=== PATIENT | male | born 1950 | race Caucasian/White ===

== ENCOUNTER 2025-05-04 13:48 | Emergency (ER) | payer MEDICARE, SELFPAY ==
[2025-05-04] VITALS (15 sets, daily range): BP systolic 97–145; BP diastolic 58–120; PULSE 90–123; RESP 14–23; TEMP 36.6–39.3; O2SAT 91–100; BMI 10.2
--- NOTE | 2025-05-04 14:20 | EKG12_ITS ---
Test Reason : GENERAL Blood Pressure : */* mmHG Vent. Rate : 95 BPM Atrial Rate : 95 BPM P-R Int : 134 ms QRS Dur : 88 ms QT Int : 346 ms P-R-T Axes : -3 3 41 degrees QTcB Int : 434 ms Normal sinus rhythm Normal ECG Confirmed by Faustino Victoria ([id number]), metropolitan editor MIRANDA GUSMAN ([id number]) on 05/06/2025 5:48:00 AM Referred By: Confirmed By: Faustino Victoria
--- NOTE | 2025-05-04 14:31 | EX.ED.DYSGE1 ---
HPI History of Present Illness Chief Complaint: Fever Narrative Narrative: History and physical as mildly limited secondary to patient condition and age. Patient sent from [facility] with concern for sepsis. He states he has been feeling well over the last day. When I asked him if he has had a fever, he stated that he did not think so. He denies any cough or difficulty breathing, no dysuria. He was sent because he had elevated temperature of 99.5 and may have been a little more confused. [facility] Medical History BPH (benign prostatic hyperplasia) GERD (gastroesophageal reflux disease) Venous insufficiency CHF (congestive heart failure) Major depressive disorder Alcohol abuse Malignant neoplasm of prostate Pulmonary embolism HTN (hypertension) Hydronephrosis Cystitis Dementia Allergy/AdvReac Type Severity Reaction Status Date / Time No Known Allergies Allergy Verified 05/04/25 13:58 Social History Smoking Status: Current every day smoker tobacco type: cigarettes ROS ROS ED ROS Narrative Review of systems positive for generalized weakness, reported elevated temperature. Denies cough or shortness of breath, no chest pain. No difficulty urinating or urinary frequency. Review of Systems ROS Unobtainable: due to mental status EXAM Physical Exam Narrative Exam Narrative: Afebrile, temperature 99.5 ?F. Vital signs noted. Cardiovascular semination reveals mild tachycardia. Lungs are clear to auscultation bilaterally anteriorly. Abdomen is soft and nontender without guarding or rebound. Positive bowel sounds. No noted pedal edema. Moves all extremities. Awake, alert, oriented to person and place but not time. Const Vital Signs: 05/04/25 13:51 05/04/25 13:56 05/04/25 14:05 Temperature 99.5 F H 99.5 F H Temperature Source Oral Temporal Pulse Rate 100 104 H Respiratory Rate 17 20 H Respiratory Effort Normal Non-Labored Blood Pressure 105/70 105/70 Blood Pressure Mean 81 81 Pulse Ox 91 93 Oxygen Delivery Method Room Air Room Air 05/04/25 14:25 05/04/25 14:54 05/04/25 15:00 Temperature 101.2 F H 101.3 F H Temperature Source Core Core Pulse Rate 96 92 Respiratory Rate 23 H 19 H Respiratory Effort Blood Pressure 114/65 105/58 L Blood Pressure Mean 81 73 Pulse Ox 93 94 Oxygen Delivery Method Room Air Room Air Room Air 05/04/25 16:00 Temperature 100.9 F H Temperature Source Oral Pulse Rate 91 Respiratory Rate 21 H Respiratory Effort Blood Pressure 97/61 Blood Pressure Mean 73 Pulse Ox 100 Oxygen Delivery Method Room Air MDM MDM MDM Narrative Medical decision making narrative: Differential diagnosis includes but not limited to sepsis versus dehydration versus other electrolyte imbalance. He may have more of a viral syndrome. Sepsis workup was pursued. EKG was obtained interpreted by myself independently as normal sinus rhythm at 95 bpm without ectopy or acute ST changes. No STEMI. Reviewed his laboratory work and he has normal white count 9.2 with hemoglobin 14.0, hematocrit 40.5, platelet count 226. Coagulation studies are negative except APTT slightly elevated at 37.5. CMP shows glucose of 114 with a normal BUN and creatinine, AST and ALT and alk phos are normal. Ammonia was obtained to look for hepatic encephalopathy as he has a cholecystomy tube that is draining bilious material. Ammonia level is normal at 18.1. Urinalysis does show RBCs of 10-25 with 0-5 WBCs and 1+ bacteria. This will be sent for culture. In review of the chest x-ray, there is hazy opacity in the right lower lobe on my independent interpretation. I reviewed the radiology report which confirms my independent interpretation. Additionally, CT of the abdomen pelvis was obtained and comments on right pleural effusion and opacity of the lung concerning for pneumonia as well. There is the cholecystomy tube in place in the gallbladder but there is no evidence of pericholecystic fluid or infection. Patient did spike a fever as high as 101.3 so he was administered Tylenol 650 mg orally. Although his lactic acid is currently normal, concern is that he may become septic. He was started on antibiotics in the form of Rocephin 2 g and azithromycin for pneumonia. I discussed patient with the hospitalist for admission. Patient in stable condition History & Record Review Discussion w/independent historian: Patient Lab Data Attestation: I reviewed the patient's lab results. Labs: Laboratory Results - last 24 hr 05/04/25 05/04/25 05/04/25 14:33 14:47 14:48 WBC 9.2 RBC 4.22 L Hgb 14.0 Hct 40.5 MCV 96.0 H MCH 33.2 H MCHC 34.6 RDW Std Deviation 50.6 H RDW Coeff of Mehdi 14.3 Plt Count 226 MPV 11.0 Immature Gran % (Auto) 0.300 Neut % (Auto) 70.3 H Lymph % (Auto) 8.1 L Owsley % (Auto) 20.0 H Eos % (Auto) 1.0 Baso % (Auto) 0.3 Absolute Neuts (auto) 6.4 Absolute Lymphs (auto) 0.74 L Nucleated RBC % 0 PT 20.3 H INR 1.7 APTT 37.5 H Sodium 138 Potassium 4.1 Chloride 102 Carbon Dioxide 25.5 Anion Gap 11 BUN 18 Creatinine 0.91 Est GFR (MDRD) Non-Af 89 BUN/Creatinine Ratio 19.7 Glucose 114 H Lactic Acid 1.8 Calcium 8.6 Total Bilirubin 1.15 AST 18 ALT 8 Alkaline Phosphatase 71 Ammonia 18.1 Total Protein 6.6 Albumin 2.9 L Globulin 3.7 Albumin/Globulin Ratio 0.8 L Urine Color Yellow Urine Clarity Sl. Cloudy Urine pH 5.0 Ur Specific [place] 1.020 Urine Protein 30 H Urine Glucose (UA) Normal Urine Ketones Negative Urine Occult Blood 250 H Urine Nitrite Negative Urine Bilirubin 1 H Urine Urobilinogen 4 H Ur Leukocyte Esterase 25 H Urine RBC 10-25 SEEN Urine WBC 0-5 SEEN Ur Squamous Epith Cells 0 SEEN Calcium Oxalate Crystal RARE Amorphous Sediment 1+ Urine Bacteria 1+ Urine Mucus 0 SEEN Radiography Chest X-Ray - ED: 1 View, Read by ED Physician, Read by Radiologist and Right Infiltrate Diagnostic Testing: Clinical Impression(s) from Imaging Studies Abdomen/Pelvis CT 05/04/25 14:37 IMPRESSION: Right pleural effusion with airspace opacity may represent atelectasis with pneumonia can not be excluded. Cholecystomy tube is in place. The gallbladder is decompressed which limits in the evaluation but likely shows mild wall thickening. No gallstones seen within the limitation of the study. No pericholecystic fluid or gas. No biliary dilation. Large prostate. Reading Location: [facility] Chest X-Ray 05/04/25 15:10 IMPRESSION: Patchy opacity within right lower lung, concerning for underlying infectious/inflammatory process. Reading Location: [id number] Management Discussion w/another healthcare provider: Hospitalist (Dr. Mcleod) Discharge Plan Dx/Rx/DC Orders Clinical Impression: Fever, Pneumonia, Mental status, decreased, Generalized weakness Disposition Disposition: Acute Care Hospital [facility]
--- NOTE | 2025-05-04 14:37 | CT_ITS ---
PROCEDURE: ABDOMEN/PELVIS W IV CONT ONLY 05/04/2025 REASON FOR EXAM: FEVER TECHNIQUE: Procedure Code: [id number] Modality: CT Procedure: ABDOMEN/PELVIS W IV CONT ONLY Coronal and Sagittal reconstruction series were provided. CONTRAST: Isovue 370 VOLUME: 75 mL One or more dose reduction techniques were used (e.g., Automated exposure control, adjustment of the mA and/or kV according to patient size, use of iterative reconstruction technique. RADIATION DOSE SUMMARY: CTDlvol: 8.59 mGy DLP: 507.18 mGycm COMPARISON: None. FINDINGS: Lung bases: Right pleural effusion with airspace opacity may represent atelectasis with pneumonia can not be excluded. Liver: Unremarkable. Gallbladder: The cholecystomy tube is in place. The gallbladder is decompressed which limits in the evaluation but likely shows mild wall thickening. No pericholecystic fluid or gas. No biliary dilation. Spleen: Calcified granulomas in the spleen. Pancreas: Unremarkable. Adrenals: Unremarkable. Kidneys: A 2 cm cyst at the upper pole of the left kidney. A 1.4 cm stone at the upper pole of the left kidney. A punctate stone in the right renal pelvis. A 1.2 cm stone in the right renal pelvis. Mild right hydronephrosis. The bladder is decompressed by Sinclair catheter. Bladder: Decompressed by Sinclair catheter but otherwise unremarkable. Reproductive Organs: Unremarkable. Bowel: No bowel wall thickening. No bowel obstruction. Appendix: Unremarkable. Lymph nodes: No lymphadenopathy. Vasculature: Atherosclerotic calcifications. No aneurysm. Peritoneum / Retroperitoneum: No free air or free fluid. Bones: No acute bony abnormality. A Schmorl node at the upper endplate of L2. Status post total left hip replacement. CT/Abdomen/Pelvis W IV Cont ONLY IMPRESSION: Right pleural effusion with airspace opacity may represent atelectasis with pne umonia can not be excluded. Cholecystomy tube is in place. The gallbladder is decompressed which limits in the evaluation but likely shows mild wall thickening. No gallstones seen within the limitation of the study. No pericho lecystic fluid or gas. No biliary dilation. Large prostate. Reading Location: [facility]
[2025-05-04 14:53] LABS: Hematocrit 40.5 % (40-54); Hemoglobin 14.0 g/dL (13.0-16.5); Immature Granulocytes Count 0.030 X10^3/uL (0.0-0.0); Mean Corp Hgb Conc 34.6 g/dL (32-36); Mean Corpuscular Volume 96.0 fL (80-94); Mean Platelet Vol. 11.0 fl (6.2-12.0); NRBC Flagged by Analyzer 0 % (0-5); POSITIVE DIFFERENTIAL YES; Platelet Count 226 K/mm3 (150-450); RBC Distribution Width CV 14.3 % (11.6-14.6); RBC Distribution Width SD 50.6 fl (35.1-43.9); Red Blood Count 4.22 M/mm3 (4.6-6.2); White Blood Count 9.2 K/mm3 (4.4-11.0)
[2025-05-04 14:57] LABS: Mucous, Urine 0 SEEN /hpf (<or=2+); Squamous Epithelial Cells - UA 0 SEEN /hpf (0-5)
[2025-05-04 15:02] LABS: Partial Thromboplast Time 37.5 Seconds (24.1-36.2); Prothrombin Time (Protime)PT. 20.3 SECONDS (11.7-14.9)
[2025-05-04] MEDS: 0.9% Normal Saline (1000mL) 1,000 ML 999 ML IV (15:05)
--- NOTE | 2025-05-04 15:10 | RAD_ITS ---
PROCEDURE: CHEST 1 VIEW (PORTABLE) 05/04/2025 REASON FOR EXAM: FEVER TECHNIQUE: Frontal view of the chest. COMPARISON: None FINDINGS: Hardware: Monitoring electrodes overlying chest wall. Heart: Heart size is mildly enlarged. Lungs: Patchy opacity within right lower lung. Bibasilar atelectasis. Bones: Degenerative changes are identified within the thoracic spine. Other: RAD/Chest 1 View (Portable) IMPRESSION: Patchy opacity within right lower lung, concerning for underlying infectious/in flammatory process. Reading Location: [id number]
[2025-05-04 15:13] LABS: Color, Urine Yellow (Yellow); Glucose, Dipstick Normal (Normal); Ketone-Dipstick Negative (Negative); Leukocyte Esterase-Dipstick 25 /ul (Negative); Nitrite-Dipstick Negative (Negative); Occult Blood-Urine 250 /ul (Negative); Protein-Dipstick 30 mg/dl (Negative); Specific Gravity, Urine 1.020 (1.002-1.030); Urine Bilirubin Dipstick 1 mg/dL (Negative)
[2025-05-04 15:13] LABS: Differential Indicated SCAN CRITERIA MET
[2025-05-04 15:17] LABS: Ammonia 18.1 umol/L (16-60)
[2025-05-04 15:18] LABS: AST(SGOT) 18 U/L (<=37); Alanine Aminotransfer ALT/SGPT 8 U/L (<=46); Albumin, Serum 2.9 g/dL (3.4-4.8); Alkaline Phosphatase 71 U/L (40-129); Anion Gap 11 (5-15); BUN 18 mg/dL (4-19); BUN/Creat Ratio 19.7 RATIO (10-20); Calcium,Total 8.6 mg/dL (7.6-11.0); Carbon Dioxide 25.5 mmol/L (21.0-32.0); Chloride 102 mmol/L (98-108); Globulin 3.7 g/dL (2.2-4.2); Glucose 114 mg/dL (70-99); Potassium 4.1 mmol/L (3.3-5.1)
[2025-05-04 15:20] LABS: Calcium Oxalate Crystals Ur RARE /hpf (<or=2+); Red Blood Cells-Urine 10-25 SEEN /hpf (0-5)
[2025-05-04] MEDS: Ceftriaxone 2 GM in 0.9% Normal Saline (50mL MB+) 50 ML IV (16:37)
[2025-05-04] MEDS: Azithromycin 500 MG in 0.9% Normal Saline (250mL Bag) 250 ML 255 MG IV (16:42)
--- NOTE | 2025-05-04 21:10 | PCA ---
[facility] CALLED, CHART FAXED.
--- NOTE | 2025-05-04 21:25 | PCA ---
PT ACCEPTED AT [facility] BY DR. JAIN [id number] [phone] 3S [id number] BED Richy HEARN RN ASKED TO BE CALLED WITH TRANSPORT TIME. LOCAL TRANSPORT CALLED AND GIVEN AN ETA OF 5 HRS ([id number]). DID REQUEST THEY TRY AND OUTSOURCE AND AWAITING CALL BACK.
[2025-05-04] MEDS: Meropenem 2 GM in 0.9% Normal Saline (100mL Bag) 100 ML IV (21:32)
[2025-05-05] VITALS: BP 109/65; PULSE 95; RESP 94; TEMP 38.3; O2SAT 97
[2025-05-05 01:00] VITALS: BP 89/56; PULSE 86; RESP 18; RESP 19; TEMP 37.9; O2SAT 96
--- NOTE | 2025-05-05 05:40 | ED.RN ---
see down time chartng from 1 to 5am.
== END 2025-05-05 05:41 | disposition short-term general hospital (02) ==
PROVIDERS: Emergency Provider Emergency Medicine; Visit Provider Emergency Medicine
DX: J18.9 Pneumonia, unspecified organism (principal); I11.0 Hypertensive heart disease with heart failure; I50.9 Heart failure, unspecified; R53.1 Weakness; N40.0 Benign prostatic hyperplasia without lower urinary tract symptoms; F17.210 Nicotine dependence, cigarettes, uncomplicated; Z86.711 Personal history of pulmonary embolism; R41.82 Altered mental status, unspecified
CPT/HCPCS: 51702; 71045; 74177; 80053; 81001; 82140; 83605; 85025; 85610; 85730; 87040; 87077; 87086; 87186; 87631; 93005; 96361; 96365; 96367; 99285; J2185; Q9967; A4216; J0696